=== PATIENT | female | born 1980 | race Two or more races ===

== ENCOUNTER 2017-02-04 07:54 | Emergency (ER) | payer OTHER ==
[2017-02-04 07:55] VITALS: BMI 23.1
[2017-02-04 08:11] VITALS: TEMP 98.3; O2SAT 97
[2017-02-04] MEDS ORDERED: Sodium Chloride 0.9% 1,000 ML IV STA (08:39)
--- NOTE | 2017-02-04 08:42 | ED PDOC ---
Arrival/HPI - General Chief Complaint: Headache Time Seen by Provider: 02/04/17 08:17 Historian: Patient - History of Present Illness Narrative History of Present Illness (Text): 02/04/17 08:56 A 37 year old female, whose past medical history includes chronic headaches, presents to the emergency department complaining of a headache, anxiety and left arm pain. Patient reports she has similar symptoms in the past with stress. Denies any head injury. Patient also reports shortness of breath yesterday and palpitations, but denies any other complaints at this time. Symptom Onset: Sudden Symptom Course: Unchanged Activities at Onset: Rest Context: Home Past Medical History - Provider Review Nursing Documentation Reviewed: Yes - Cardiac Hx Cardiac Disorders: No - Pulmonary Hx Respiratory Disorders: No - Neurological Hx Neurological Disorder: Yes Hx Migraine: Yes - HEENT Hx HEENT Disorder: No - Renal Hx Renal Disorder: No - Endocrine/Metabolic Hx Endocrine Disorders: No - Hematological/Oncological Hx Blood Disorders: No - Integumentary Hx Dermatological Disorder: No - Musculoskeletal/Rheumatological Hx Musculoskeletal Disorders: No - Gastrointestinal Hx Gastrointestinal Disorders: No - Genitourinary/Gynecological Hx Genitourinary Disorders: No - Psychiatric Hx Psychophysiologic Disorder: Yes Hx Anxiety: Yes Hx Depression: No Hx Emotional Abuse: No Hx Physical Abuse: No Hx Substance Use: No - Surgical History Hx Section: Yes - Suicidal Assessment Feels Threatened In Home Enviroment: No Family/Social History - Physician Review Nursing Documentation Reviewed: Yes Family/Social History: No Known Family HX Smoking Status: Never Smoked Hx Alcohol Use: No Hx Substance Use: No Hx Substance Use Treatment: No Allergies/Home Meds Allergies/Adverse Reactions: Allergies No Known Allergies Allergy (Verified 02/04/17 08:09) Home Medications: Home Meds Medication Instructions Recorded Confirmed Acetaminophen/Butalbital/Caf 1 tab PO PRN PRN 02/04/17 02/04/17 [Fioricet] Escitalopram [Lexapro] 20 mg PO DAILY 02/04/17 02/04/17 clonazePAM [Klonopin] 0.5 mg PO DAILY PRN 02/04/17 02/04/17 Review of Systems - Physician Review All systems were reviewed & negative as marked: Yes - Review of Systems Respiratory: SOB Cardiovascular: Palpitations Musculoskeletal: Other (left arm pain) Neurological: Headache Psychiatric: Anxiety Physical Exam - Physical Exam Narrative Physical Exam (Text): 02/04/17 08:54 Constitutional: No acute distress. Head: Normocephalic. Atraumatic. Eyes: PERRL. ENT: Moist mucous membranes. Neck: Supple. No midline tenderness. Cardiovascular: Regular rate. Chest: No tenderness. Respiratory: Clear to auscultation bilaterally. GI: Soft. Nontender. Nondistended. Back: No CVA tenderness. Musculoskeletal: No tenderness or swelling of extremities. Mild abrasion of left forearm, full ROM elbow, wrist, no tenderness. Skin: No rash. Neurologic: Alert, no focal deficit. Vital Signs Reviewed: Yes Vital Signs Temp Pulse Resp BP Pulse Ox 02/04/17 11:11 64 18 135/78 02/04/17 08:09 98.3 F 83 16 145/102 H 97 Temperature: Afebrile Blood Pressure: Hypertensive Pulse: Regular Respiratory Rate: Normal Appearance: Positive for: Well-Appearing, Non-Toxic, Comfortable Pain Distress: None Mental Status: Positive for: Alert and Oriented X 3 Medical Decision Making ED Course and Treatment: 02/04/17 08:42 Impression: A 37 year old female with chronic headache, anxiety and left arm pain. Plan: -- CT head -- Radiology left forearm -- Urinalysis -- IV fluids, Toradol, Tylenol -- Reassess and disposition Progress Notes: 02/04/17 09:53 CT HEAD WITHOUT CONTRAST Creator : Phillip Deal MD FINDINGS: HEMORRHAGE: No intracranial hemorrhage. BRAIN: No mass effect or edema. No atrophy or chronic microvascular ischemic changes. VENTRICLES: Unremarkable. No hydrocephalus. CALVARIUM: Unremarkable. PARANASAL SINUSES: Unremarkable as visualized. No significant inflammatory changes. MASTOID AIR CELLS: Unremarkable as visualized. No inflammatory changes. IMPRESSION: Normal CT of the Head. 02/04/17 09:57 Radiology of left forearm: No fracture or dislocation, interpreted by me. Patient in no acute distress. Symptoms consistent with panic attack, which patient states she has had in the past. - RAD Interpretation Radiology Orders: 02/04/17 08:39 HEAD W/O CONTRAST [CT] Stat FOREARM LEFT [RAD] Stat - Medication Orders Current Medication Orders: Discontinued Medications Acetaminophen (Tylenol 325mg Tab) 975 mg PO STAT STA Stop: 02/04/17 08:40 Last Admin: 02/04/17 09:17 Dose: 975 mg Sodium Chloride (Sodium Chloride 0.9%) 1,000 mls @ 999 mls/hr IV .Q1H1M STA Stop: 02/04/17 09:39 Last Admin: 02/04/17 09:18 Dose: 999 mls/hr Ketorolac Tromethamine (Toradol) 30 mg IVP STAT STA Stop: 02/04/17 08:40 Last Admin: 02/04/17 09:17 Dose: 30 mg - Scribe Statement The provider has reviewed the documentation as recorded by the Thomas Oseguera Provider Scribe Attestation: All medical record entries made by the Thomas were at my direction and personally dictated by me. I have reviewed the chart and agree that the record accurately reflects my personal performance of the history, physical exam, medical decision making, and the department course for this patient. I have also personally directed, reviewed, and agree with the discharge instructions and disposition. Disposition/Present on Arrival - Present on Arrival Any Indicators Present on Arrival: No History of DVT/PE: No History of Uncontrolled Diabetes: No Urinary Catheter: No History of Decub. Ulcer: No History Surgical Site Infection Following: None - Disposition Have Diagnosis and Disposition been Completed?: Yes Diagnosis: Panic attack Disposition: HOME/ ROUTINE Disposition Time: 09:57 Patient Plan: Discharge Condition: STABLE Discharge Instructions (ExitCare): Panic Attack (ED) Prescriptions: Ibuprofen [Motrin] 600 mg PO Q6 #25 tab Referrals: Augustus Palacios MD [Primary Care Provider] - Follow up with primary Forms: [employer] (Senegalese)
--- NOTE | 2017-02-04 09:51 | CT ---
PROCEDURE: CT HEAD WITHOUT CONTRAST. HISTORY: headache COMPARISON: None available. TECHNIQUE: Axial computed tomography images were obtained through the head/brain without intravenous contrast. Radiation dose: Total exam DLP = 689 mGy-cm. This CT exam was performed using one or more of the following dose reduction techniques: Automated exposure control, adjustment of the mA and/or kV according to patient size, and/or use of iterative reconstruction technique. FINDINGS: HEMORRHAGE: No intracranial hemorrhage. BRAIN: No mass effect or edema. No atrophy or chronic microvascular ischemic changes. VENTRICLES: Unremarkable. No hydrocephalus. CALVARIUM: Unremarkable. PARANASAL SINUSES: Unremarkable as visualized. No significant inflammatory changes. MASTOID AIR CELLS: Unremarkable as visualized. No inflammatory changes. OTHER FINDINGS: None. IMPRESSION: Normal CT of the Head.
[2017-02-04 11:15] VITALS: BP 135/78; PULSE 64; RESP 18
--- NOTE | 2017-02-04 12:33 | RAD ---
PROCEDURE: Radiographs of the Left Forearm HISTORY: arm pain COMPARISON: None available. TECHNIQUE: Frontal and lateral views obtained. FINDINGS: BONES: No fracture or destructive lesion. JOINT SPACES: Unremarkable. OTHER FINDINGS: None. IMPRESSION: No evidence of acute fracture or dislocation.
== END 2017-02-04 11:15 | disposition home or self-care (01) ==
LOC: ED 07:54
DX: F41.0 Panic disorder [episodic paroxysmal anxiety] (principal)
CPT/HCPCS: 70450; 73090; 96361; 96374; 99285; J1885; J7040

== ENCOUNTER 2017-05-27 19:31 | Emergency (ER) | payer OTHER ==
[2017-05-27 19:32] VITALS: BMI 23.1
[2017-05-27 20:45] VITALS: TEMP 98.5; O2SAT 100
--- NOTE | 2017-05-27 20:54 | ED PDOC ---
Arrival/HPI - General Chief Complaint: Psychiatric Evaluation Time Seen by Provider: 05/27/17 19:49 Historian: Patient - History of Present Illness Narrative History of Present Illness (Text): 05/27/17 20:51 Brittney Simmons is a 37 year old female, whose past medical history includes anxiety and migraines, who presents to the emergency department complaining of anxiety tonight. Patient states she has been feeling anxious after having an argument with her tonight and reports symptoms are consistent with previous episodes of anxiety. States symptoms have improved sine arriving to the ER. Patient also notes urinary frequency and requesting a urinalysis. Patient denies any suicidal ideation, homicidal ideation, fever, chills, chest pain, shortness of breath, abdominal pain, nausea, vomiting, diarrhea, hematuria , back pain, dizziness, or any other complaints. Patient regularly takes Lexapro for panic attacks. Symptom Onset: Gradual Symptom Course: Unchanged Activities at Onset: Light Context: Home Past Medical History - Provider Review Nursing Documentation Reviewed: Yes - Cardiac Hx Cardiac Disorders: No - Pulmonary Hx Respiratory Disorders: No - Neurological Hx Neurological Disorder: Yes Hx Migraine: Yes - HEENT Hx HEENT Disorder: No - Renal Hx Renal Disorder: No - Endocrine/Metabolic Hx Endocrine Disorders: No - Hematological/Oncological Hx Blood Disorders: No - Integumentary Hx Dermatological Disorder: No - Musculoskeletal/Rheumatological Hx Musculoskeletal Disorders: No - Gastrointestinal Hx Gastrointestinal Disorders: No - Genitourinary/Gynecological Hx Genitourinary Disorders: No - Psychiatric Hx Psychophysiologic Disorder: Yes Hx Anxiety: Yes Hx Depression: No Hx Emotional Abuse: No Hx Physical Abuse: No Hx Substance Use: No - Surgical History Hx Section: Yes - Suicidal Assessment Feels Threatened In Home Enviroment: No Family/Social History - Physician Review Nursing Documentation Reviewed: Yes Family/Social History: Unknown Family HX Smoking Status: Never Smoked Hx Alcohol Use: No Hx Substance Use: No Hx Substance Use Treatment: No Allergies/Home Meds Allergies/Adverse Reactions: Allergies No Known Allergies Allergy (Verified 02/04/17 08:09) Home Medications: Home Meds Medication Instructions Recorded Confirmed Escitalopram [Lexapro] 20 mg PO DAILY 02/04/17 05/27/17 Review of Systems - Physician Review All systems were reviewed & negative as marked: Yes - Review of Systems Constitutional: Normal. absent: Fevers Eyes: Normal ENT: Normal. absent: Rhinorrhea Respiratory: Normal. absent: SOB Cardiovascular: Normal. absent: Chest Pain Gastrointestinal: Normal. absent: Abdominal Pain, Diarrhea, Nausea, Vomiting Genitourinary Female: Frequency Musculoskeletal: Normal. absent: Back Pain, Neck Pain Skin: Normal. absent: Rash Neurological: Normal. absent: Headache, Dizziness Endocrine: Normal Hemo/Lymphatic: Normal Psychiatric: Anxiety Physical Exam Vital Signs Reviewed: Yes Vital Signs Temp Pulse Resp BP Pulse Ox 05/27/17 20:27 98.5 F 93 H 20 120/87 100 Temperature: Afebrile Blood Pressure: Normal Pulse: Regular Respiratory Rate: Normal Appearance: Positive for: Well-Appearing, Non-Toxic, Comfortable Pain Distress: None Mental Status: Positive for: Alert and Oriented X 3 - Systems Exam Head: Present: Atraumatic, Normocephalic Pupils: Present: PERRL Extroacular Muscles: Present: EOMI Conjunctiva: Present: Normal Mouth: Present: Moist Mucous Membranes Neck: Present: Normal Range of Motion Respiratory/Chest: Present: Clear to Auscultation, Good Air Exchange. No: Respiratory Distress, Accessory Muscle Use Cardiovascular: Present: Regular Rate and Rhythm, Normal S1, S2. No: Murmurs Abdomen: Present: Normal Bowel Sounds. No: Tenderness, Distention, Peritoneal Signs Back: Present: Normal Inspection Upper Extremity: Present: Normal Inspection. No: Cyanosis, Edema Lower Extremity: Present: Normal Inspection. No: Edema Neurological: Present: GCS=15, CN II-XII Intact, Speech Normal Skin: Present: Warm, Dry, Normal Color. No: Rashes Psychiatric: Present: Alert, Oriented x 3, Normal Insight, Normal Concentration Medical Decision Making ED Course and Treatment: 05/27/17 20:51 Impression: 37 year old female complaining of urinary frequency for past few days and anxiety tonight. Differential Diagnosis included but are not limited to: UTI vs. anxiety Plan: -- Urinalysis -- Reassess and disposition Prior Visits: Notes and results from previous visits were reviewed. On 02/04/2017, pt was seen in the emergency department for headache, anxiety, and left arm pain. Pt was d/c home. Progress Notes: 05/27/17 22:05 On reevaluation the patient feels better and is in no acute distress. I have discussed the results and plan with the patient, who expresses understanding. Patient given the opportunity to ask question, all questions were answered and there is agreement with the plan to discharge the patient home. Patient is stable for discharge. Patient was instructed to follow up with physician/clinic in 1-2 days or return if symptoms persist/worsen or new concerning symptoms arise. - Lab Interpretations Lab Results: Lab Results 05/27/17 20:55: Urine Color Yellow, Urine Appearance Clear, Urine pH 6.0, Ur Specific [place] 1.020, Urine Protein Negative, Urine Glucose (UA) Negative, Urine Ketones Negative, Urine Blood Trace-intact H, Urine Nitrate Negative, Urine Bilirubin Negative, Urine Urobilinogen 0.2, Ur Leukocyte Esterase Negative , Urine RBC 1 - 3, Urine WBC 0 - 2, Ur Epithelial Cells 1 - 3, Urine Bacteria Few, Urine HCG, Qual Negative - Medication Orders Current Medication Orders: Discontinued Medications Cephalexin Monohydrate (Keflex) 500 mg PO ONCE STA PRN Reason: Protocol Stop: 05/27/17 22:06 - Scribe Statement The provider has reviewed the documentation as recorded by the Scribmanoj Damon All medical record entries made by the Scribe were at my direction and personally dictated by me. I have reviewed the chart and agree that the record accurately reflects my personal performance of the history, physical exam, medical decision making, and the department course for this patient. I have also personally directed, reviewed, and agree with the discharge instructions and disposition. Disposition/Present on Arrival - Present on Arrival Any Indicators Present on Arrival: No History of DVT/PE: No History of Uncontrolled Diabetes: No Urinary Catheter: No History of Decub. Ulcer: No History Surgical Site Infection Following: None - Disposition Have Diagnosis and Disposition been Completed?: Yes Diagnosis: Anxiety, UTI (urinary tract infection) Disposition: HOME/ ROUTINE Disposition Time: 22:07 Patient Plan: Discharge Patient Problems: Current Active Problems Problem Status Onset Anxiety Acute UTI (urinary tract infection) Acute Condition: GOOD Discharge Instructions (ExitCare): Urinary Tract Infection in Women (ED), Anxiety (ED) Additional Instructions: Take meds as prescribed/follow up with your doctor this week Prescriptions: Acetaminophen/Butalbital/Caf [Fioricet] 1 tab PO Q6 PRN #14 tab PRN Reason: Headache Cephalexin [cephalexin] 500 mg PO BID #6 cap Referrals: Augustus Palacios MD [Primary Care Provider] - Follow up with primary Forms: [employer] (Kazakh)
[2017-05-27 21:27] LABS: URINE BILIRUBIN NEGATIVE (NEGATIVE); URINE BLOOD TRACE-INTACT (NEGATIVE); URINE GLUCOSE (UA) NEGATIVE (NEGATIVE); URINE LEUKOCYTE ESTERASE NEGATIVE Leu/uL (NEGATIVE); URINE NITRATE NEGATIVE (NEGATIVE); URINE PROTEIN NEGATIVE mg/dL (<30 mg/dL); URINE UROBILINOGEN 0.2 E.U./dL (<1 E.U./dL)
[2017-05-27 21:35] LABS: HCG,QUALITATIVE URINE NEGATIVE (NEGATIVE); URINE APPEARANCE CLEAR (CLEAR); URINE COLOR YELLOW (YELLOW)
[2017-05-27 21:50] LABS: URINE WBC 0 - 2 /hpf (0-6)
[2017-05-27 21:51] LABS: URINE BACTERIA FEW (NEG)
[2017-05-27 22:21] VITALS: BP 131/58; PULSE 80; RESP 18
== END 2017-05-27 22:44 | disposition home or self-care (01) ==
LOC: ED 19:31
DX: F41.9 Anxiety disorder, unspecified (principal); N39.0 Urinary tract infection, site not specified

== ENCOUNTER 2017-09-10 16:38 | Emergency (ER) | payer OTHER ==
[2017-09-10 16:43] VITALS: BMI 28.7
[2017-09-10 16:50] VITALS: RESP 18; TEMP 98.6; O2SAT 99
--- NOTE | 2017-09-10 18:25 | ED PDOC ---
Arrival/HPI - General Historian: Patient - History of Present Illness Time/Duration: 1 week Symptom Course: Intermittent Activities at Onset: Emotional Upset - General Chief Complaint: High Blood Pressure Time Seen by Provider: 09/10/17 16:40 - History of Present Illness Narrative History of Present Illness (Text): 09/10/17 18:17 37 yo F with history of panic disorder presents to ER with her and two kids, complaining of high blood pressure. Patient reports that on two occasions in the past week, she checked her blood pressure, once at home, and once at the pharmacy, and it was elevated to 140-170 systolic 100-105 diastolic. Patient is very tearful and anxious on exam, and reports that she has been under a lot of stress in her daily life, worse in the past two weeks. She relates the episodes of hypertension to concurrent episodes of anxiety and stress. She reports some trouble at home with her , as well as trouble with her kid's teachers. Patient reports that she is very defensive towards her kids, and that she becomes very agitated and anxious whenever anything happens that makes her concerned about them. 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 Patient is on Lexapro for her panic disorder, and was previously prescribed clonazepam by her PMD, but did not take it for fear of the side effects and addiction. Initially in the encounter, patient was complaining of a headache, but after talking to me for a few minutes, her headache has resolved. She denies any chest pain, shortness of breath, or palpitations. Patient reports that she follows up closely with Dr. Marito Gray. She now denies any suicidal ideation , homocidal ideation. Patient feels safe and unthreatened at home with her . (Jarad,Maria Antonia) Past Medical History - Provider Review Nursing Documentation Reviewed: Yes - Travel History Have you recently traveled outside [place] w/in the past 3 mons?: No - Infectious Disease Hx of Infectious Diseases: None - Tetanus Immunization Tetanus Immunization: Unknown - Cardiac Hx Cardiac Disorders: No - Pulmonary Hx Respiratory Disorders: No - Neurological Hx Neurological Disorder: Yes Hx Migraine: Yes - HEENT Hx HEENT Disorder: No - Renal Hx Renal Disorder: No - Endocrine/Metabolic Hx Endocrine Disorders: No - Hematological/Oncological Hx Blood Disorders: No - Integumentary Hx Dermatological Disorder: No - Musculoskeletal/Rheumatological Hx Musculoskeletal Disorders: No - Gastrointestinal Hx Gastrointestinal Disorders: No - Genitourinary/Gynecological Hx Genitourinary Disorders: No - Psychiatric Hx Psychophysiologic Disorder: Yes Hx Anxiety: Yes Hx Substance Use: No - Surgical History Hx Section: Yes - Suicidal Assessment Suicidal Thoughts: No Feels Threatened In Home Enviroment: No - Patient History Narrative Patient History: Panic disorder (Amine,[place]) Family/Social History - Physician Review Nursing Documentation Reviewed: Yes Family/Social History: Unknown Family HX Smoking Status: Never Smoked Hx Alcohol Use: No Hx Substance Use: No Hx Substance Use Treatment: No Allergies/Home Meds Allergies/Adverse Reactions: Allergies No Known Allergies Allergy (Verified 02/04/17 08:09) Home Medications: Home Meds Medication Instructions Recorded Confirmed Escitalopram [Lexapro] 20 mg PO DAILY 02/04/17 09/10/17 Review of Systems - Review of Systems Constitutional: Normal Eyes: Normal ENT: Normal Respiratory: Normal Cardiovascular: Normal Gastrointestinal: Normal Genitourinary Female: Normal Musculoskeletal: Normal Skin: Normal Neurological: Headache. absent: Dizziness Endocrine: Normal Hemo/Lymphatic: Normal Psychiatric: Anxiety Physical Exam Vital Signs Reviewed: Yes Temperature: Afebrile Blood Pressure: Hypertensive Pulse: Tachycardic Respiratory Rate: Normal Appearance: Positive for: Well-Appearing, Non-Toxic, Comfortable Pain Distress: None Mental Status: Positive for: Alert and Oriented X 3 - Systems Exam Head: Present: Atraumatic, Normocephalic Pupils: Present: PERRL Extroacular Muscles: Present: EOMI Conjunctiva: Present: Normal Mouth: Present: Moist Mucous Membranes Neck: Present: Normal Range of Motion Respiratory/Chest: Present: Clear to Auscultation, Good Air Exchange. No: Respiratory Distress, Accessory Muscle Use Cardiovascular: Present: Regular Rate and Rhythm, Normal S1, S2 Abdomen: Present: Normal Bowel Sounds. No: Tenderness, Distention Upper Extremity: Present: Normal Inspection. No: Cyanosis, Edema Lower Extremity: Present: Normal Inspection. No: Edema, CALF TENDERNESS Neurological: Present: GCS=15, CN II-XII Intact, Speech Normal Skin: Present: Warm, Dry, Normal Color Psychiatric: Present: Alert, Oriented x 3, Normal Insight, Normal Concentration , Anxious, Depressed Mood. No: Normal Affect, Normal Mood, Suicidal Ideation, Homicidal Ideation, Delusional, Hallucinations, Intoxicated, Lethargic - Physical Exam Narrative Physical Exam (Text): 09/10/17 18:27 Patient is intermittent tearful throughout encounter, with blunted affect, pressured speech, constantly redirects the conversation to her concerns about her kids (Maria Antonia Abraham) Vital Signs Temp Pulse Pulse Resp BP Pulse Ox 09/10/17 17:10 98 H 09/10/17 16:39 98.6 F 111 H 18 168/106 H 99 Medical Decision Making ED Course and Treatment: 09/10/17 18:35 Patient Seen With Resident: In agreement with resident note which contains more details about the patient. Patient was seen and evaluated with resident. Came up with plan and treatment together.. (Arnulfo Witt) 09/10/17 18:29 Impression: Hypertension Differential Diagnosis included but are not limited to: Primary hypertension, KAREN Plan: -- Sat with patient and had long discussion about home life, stressors, self care, and medical follow up -- Clonazepam 0.5mg PO x1 -- Recheck BP -- Reassess and disposition Prior Visits: Notes and results from previous visits were reviewed. Patient was last seen in the emergency department on 05/27/17 for anxiety and urinary symptoms. Patient was discharged from the ER to home. Progress Notes: 09/10/17 19:14 -- Patient reassess after dose of clonazepam, appears much calmer, more comfortable, less distraught; BP slightly improved -- Patient denies any chest pain, headache, shortness of breath, palpitations, leg cramps, blurry vision, diplopia, tinnitus -- Patient will be discharged to home with 5 doses of clonazepam; patient to follow up with her PMD Dr. Gray within the next week for continued monitoring of her blood pressure and anxiety. Advised patient to seek marriage counselor, as home life appears to be the source of most of her anxiety, with resultant hyperadrenergic states and hypertension. -- Patient remains hypertensive, slightly improved since presentation, but is now asymptomatic. (Maria Antonia Abraham) - Medication Orders Current Medication Orders: Discontinued Medications Clonazepam (Klonopin) 0.5 mg PO STAT STA PRN Reason: Protocol Stop: 09/10/17 17:40 Last Admin: 09/10/17 18:33 Dose: 0.5 mg Disposition/Present on Arrival - Present on Arrival Any Indicators Present on Arrival: No History of DVT/PE: No History of Uncontrolled Diabetes: No Urinary Catheter: No History of Decub. Ulcer: No History Surgical Site Infection Following: None - Disposition Have Diagnosis and Disposition been Completed?: Yes Disposition Time: 19:19 Patient Plan: Discharge - Disposition Diagnosis: Hypertension, Anxiety, Panic attack Disposition: HOME/ ROUTINE Condition: GOOD Discharge Instructions (ExitCare): High Blood Pressure (DC), Anxiety, Adult (DC ) Additional Instructions: -- Use the clonazepam 0.5mg twice daily as needed for anxiety -- Follow up with your primary care doctor within 3-5 days -- Return to the ER for any new or worsening concerns Prescriptions: Clonazepam 0.5 mg PO BID PRN #5 odt PRN Reason: Anxiety Referrals: Augustus Palacios MD [Primary Care Provider] - Follow up with primary Forms: [employer] (Citizen Of [place])
[2017-09-10 19:27] VITALS: BP 141/91; PULSE 95
== END 2017-09-10 19:28 | disposition home or self-care (01) ==
LOC: ED 16:38
DX: I10 Essential (primary) hypertension (principal); F41.0 Panic disorder [episodic paroxysmal anxiety]

== ENCOUNTER 2018-01-23 21:09 | Emergency (ER) | payer OTHER ==
[2018-01-23 21:26] VITALS: BMI 27.8
[2018-01-23 21:32] VITALS: BP 143/79; PULSE 119; RESP 18; TEMP 98.2; O2SAT 95
--- NOTE | 2018-01-23 22:00 | ED PDOC ---
Arrival/HPI - General Chief Complaint: Anxiety Time Seen by Provider: 01/23/18 21:36 - History of Present Illness Narrative History of Present Illness (Text): 01/23/18 21:54 38 year old female, whose past medical history includes chronic headaches and panic disorder, presents to the emergency department with anxiety and "high blood pressure". Patient is here with her young daughter for evaluation of a fever. Patient states she gets anxious whenever one of her children is sick. Patient informs that she is prescribed Klonopin for her anxiety, but did not take it today as she was busy dealing with her child's illness. Patient denies any fever, chills, nausea, vomiting, diarrhea, abdominal pain, chest pain, shortness of breath, back/neck pain, urinary output changes, headache, dizziness , or any other complaints. Time/Duration: Prior to Arrival Symptom Onset: Gradual Symptom Course: Unchanged Past Medical History - Provider Review Nursing Documentation Reviewed: Yes - Infectious Disease Hx of Infectious Diseases: None - Tetanus Immunization Tetanus Immunization: Unknown - Cardiac Hx Cardiac Disorders: No - Pulmonary Hx Respiratory Disorders: No - Neurological Hx Neurological Disorder: Yes Hx Migraine: Yes - HEENT Hx HEENT Disorder: No - Renal Hx Renal Disorder: No - Endocrine/Metabolic Hx Endocrine Disorders: No - Hematological/Oncological Hx Blood Disorders: No - Integumentary Hx Dermatological Disorder: No - Musculoskeletal/Rheumatological Hx Musculoskeletal Disorders: No - Gastrointestinal Hx Gastrointestinal Disorders: No - Genitourinary/Gynecological Hx Genitourinary Disorders: No - Psychiatric Hx Psychophysiologic Disorder: Yes Hx Anxiety: Yes Hx Substance Use: No - Surgical History Hx Section: Yes - Suicidal Assessment Feels Threatened In Home Enviroment: No Family/Social History - Physician Review Nursing Documentation Reviewed: Yes Family/Social History: No Known Family HX Smoking Status: Never Smoked Hx Alcohol Use: No Hx Substance Use: No Hx Substance Use Treatment: No Allergies/Home Meds Allergies/Adverse Reactions: Allergies No Known Allergies Allergy (Verified 01/23/18 21:26) Home Medications: Home Meds Medication Instructions Recorded Confirmed Escitalopram [Lexapro] 20 mg PO DAILY 02/04/17 01/23/18 Review of Systems - Review of Systems Constitutional: Normal. absent: Fevers, Night Sweats Eyes: Normal ENT: Normal Respiratory: Normal. absent: SOB Cardiovascular: Normal. absent: Chest Pain Gastrointestinal: Normal. absent: Abdominal Pain, Diarrhea, Nausea, Vomiting Genitourinary Female: Normal. absent: Urine Output Changes Musculoskeletal: Normal Skin: Normal Neurological: Normal. absent: Headache, Dizziness Endocrine: Normal Hemo/Lymphatic: Normal Psychiatric: Anxiety Physical Exam Vital Signs Reviewed: Yes Vital Signs Temp Pulse Resp BP Pulse Ox 01/23/18 22:05 98.2 F 119 H 18 143/79 95 01/23/18 21:31 98.2 F 119 H 18 143/79 95 Temperature: Afebrile Blood Pressure: Normal Pulse: Regular Respiratory Rate: Normal Appearance: Positive for: Well-Appearing, Non-Toxic, Comfortable Pain Distress: None Mental Status: Positive for: Alert and Oriented X 3 - Systems Exam Head: Present: Atraumatic, Normocephalic Pupils: Present: PERRL Extroacular Muscles: Present: EOMI Conjunctiva: Present: Normal Mouth: Present: Moist Mucous Membranes Neck: Present: Normal Range of Motion Respiratory/Chest: Present: Clear to Auscultation, Good Air Exchange. No: Respiratory Distress, Accessory Muscle Use Cardiovascular: Present: Regular Rate and Rhythm, Normal S1, S2. No: Murmurs Abdomen: No: Tenderness, Distention, Peritoneal Signs Back: Present: Normal Inspection Upper Extremity: Present: Normal Inspection. No: Cyanosis, Edema Lower Extremity: Present: Normal Inspection. No: Edema Neurological: Present: GCS=15, CN II-XII Intact, Speech Normal Skin: Present: Warm, Dry, Normal Color. No: Rashes Psychiatric: Present: Alert, Oriented x 3, Normal Insight, Normal Concentration Medical Decision Making ED Course and Treatment: 01/23/18 22:01 Impression: 38 year old female presents to the emergency department with anxiety and "high blood pressure" secondary to her child developing a fever. Plan: -- Reassess and disposition Prior Visits: Notes and results from previous visits were reviewed. Progress Notes: 01/23/18 21:31 Patient is not in distress any longer, with a blood pressure of 143/79. Patient is advised to take anxiety medication at home. - Scribe Statement The provider has reviewed the documentation as recorded by the Scribe Brenton Verduzco All medical record entries made by the Scribe were at my direction and personally dictated by me. I have reviewed the chart and agree that the record accurately reflects my personal performance of the history, physical exam, medical decision making, and the department course for this patient. I have also personally directed, reviewed, and agree with the discharge instructions and disposition. Disposition/Present on Arrival - Present on Arrival Any Indicators Present on Arrival: No History of DVT/PE: No History of Uncontrolled Diabetes: No Urinary Catheter: No History of Decub. Ulcer: No History Surgical Site Infection Following: None - Disposition Have Diagnosis and Disposition been Completed?: Yes Diagnosis: Anxiety Disposition: HOME/ ROUTINE Disposition Time: 22:05 Condition: GOOD Discharge Instructions (ExitCare): Anxiety, Adult (DC) Additional Instructions: DRE ZHOU, thank you for letting us take care of you today. Your provider was Pati De La Torre MD and you were treated for hbp. The emergency medical care you received today was directed at your acute symptoms. If you were prescribed any medication, please fill it and take as directed. It may take several days for your symptoms to resolve. Return to the Emergency Department if your symptoms worsen, do not improve, or if you have any other problems. Please contact your doctor or call one of the physicians/clinics you have been referred to that are listed on the Patient Visit Information form that is included in your discharge packet. Bring any paperwork you were given at discharge with you along with any medications you are taking to your follow up visit. Our treatment cannot replace ongoing medical care by a primary care provider outside of the emergency department. Thank you for allowing the [facility] team to be part of your care today. If you had an X-Ray or CT scan: A Radiologist will review the ED reading if any change in treatment is needed we will contact you. If you had a blood, urine, or wound culture: It will take several days for the results, if any change in treatment is needed we will contact you. If you had an STI test: It will take 48 hours for the results. Please call after 1 week if you have not heard back. Forms: [employer] ([place])
== END 2018-01-23 22:05 | disposition home or self-care (01) ==
LOC: ED 21:09
DX: F41.9 Anxiety disorder, unspecified (principal)

== ENCOUNTER 2018-10-04 00:07 | Emergency (ER) | payer OTHER ==
[2018-10-04 00:23] VITALS: BMI 24.0
[2018-10-04 00:34] VITALS: TEMP 98.4
[2018-10-04] MEDS ORDERED: Sodium Chloride 0.9% 1,000 ML IV STA (00:39)
--- NOTE | 2018-10-04 00:39 | ED PDOC ---
Arrival/HPI - General Chief Complaint: Abdominal Pain Time Seen by Provider: 10/04/18 00:22 Historian: Patient - History of Present Illness Narrative History of Present Illness (Text): 10/04/18 00:36 Brittney Simmons is a 38 year old female, whose past medical history includes anxiety, who presents to the ED complaining of high blood pressure. Patient states she took her blood pressure at home this evening, which she was noted was elevated. Patient states she has also been experiencing generalized abdominal pain, nausea, and vomiting. Patient also notes she recently fell at home and sustained bruises to her right forehead and left eye. Patient denies any fever, chills, chest pain, shortness of breath, diarrhea, urinary symptoms, back pain, neck pain, headache, dizziness, or any other complaints. Symptom Onset: Gradual Symptom Course: Unchanged Activities at Onset: Light Context: Home Past Medical History - Provider Review Nursing Documentation Reviewed: Yes - Infectious Disease Hx of Infectious Diseases: None - Tetanus Immunization Tetanus Immunization: Unknown - Reproductive Currently : No - Cardiac Hx Cardiac Disorders: No - Pulmonary Hx Respiratory Disorders: No - Neurological Hx Neurological Disorder: Yes Hx Migraine: Yes - HEENT Hx HEENT Disorder: No - Renal Hx Renal Disorder: No - Endocrine/Metabolic Hx Endocrine Disorders: No - Hematological/Oncological Hx Blood Disorders: No - Integumentary Hx Dermatological Disorder: No - Musculoskeletal/Rheumatological Hx Musculoskeletal Disorders: No - Gastrointestinal Hx Gastrointestinal Disorders: No - Genitourinary/Gynecological Hx Genitourinary Disorders: No - Psychiatric Hx Psychophysiologic Disorder: Yes Hx Anxiety: Yes Hx Substance Use: No - Surgical History Hx Section: Yes - Suicidal Assessment Feels Threatened In Home Enviroment: No Family/Social History - Physician Review Nursing Documentation Reviewed: Yes Family/Social History: Unknown Family HX Smoking Status: Never Smoked Hx Alcohol Use: No Hx Substance Use: No Hx Substance Use Treatment: No Allergies/Home Meds Allergies/Adverse Reactions: Allergies No Known Allergies Allergy (Verified 01/23/18 21:26) Home Medications: Home Meds Medication Instructions Recorded Confirmed Escitalopram [Lexapro] 20 mg PO DAILY 02/04/17 10/04/18 Review of Systems - Physician Review All systems were reviewed & negative as marked: Yes - Review of Systems Constitutional: Normal. absent: Fevers Eyes: Normal ENT: Normal Respiratory: Normal. absent: SOB, Cough Cardiovascular: Other (+high blood pressure). absent: Chest Pain Gastrointestinal: Abdominal Pain, Nausea, Vomiting Genitourinary Female: Normal. absent: Dysuria, Frequency, Hematuria, Urine Output Changes Musculoskeletal: Normal. absent: Back Pain, Neck Pain Skin: Normal. absent: Rash Neurological: Normal. absent: Headache, Dizziness Endocrine: Normal Hemo/Lymphatic: Normal Psychiatric: Normal Physical Exam Vital Signs Reviewed: Yes Vital Signs Temp Pulse Resp BP Pulse Ox 10/04/18 00:23 98.4 F 77 20 127/84 99 Temperature: Afebrile Blood Pressure: Normal Pulse: Regular Respiratory Rate: Normal Appearance: Positive for: Well-Appearing, Non-Toxic, Comfortable Pain Distress: None Mental Status: Positive for: Alert and Oriented X 3 - Systems Exam Head: Present: Atraumatic, Normocephalic, Ecchymosis (Ecchymosis over right forehead and left eye. ) Pupils: Present: PERRL Extroacular Muscles: Present: EOMI Conjunctiva: Present: Normal Mouth: Present: Moist Mucous Membranes Neck: Present: Normal Range of Motion. No: Meningeal Signs, MIDLINE TENDERNESS, Paraspinal Tenderness Respiratory/Chest: Present: Clear to Auscultation, Good Air Exchange. No: Respiratory Distress, Accessory Muscle Use Cardiovascular: Present: Regular Rate and Rhythm, Normal S1, S2. No: Murmurs Abdomen: No: Tenderness, Distention, Peritoneal Signs Back: Present: Normal Inspection. No: CVA Tenderness, Midline Tenderness, Paraspinal Tenderness Upper Extremity: Present: Normal Inspection. No: Cyanosis, Edema Lower Extremity: Present: Normal Inspection. No: Edema Neurological: Present: GCS=15, CN II-XII Intact, Speech Normal Skin: Present: Warm, Dry, Normal Color. No: Rashes Psychiatric: Present: Alert, Oriented x 3, Normal Insight, Normal Concentration Medical Decision Making ED Course and Treatment: 10/04/18 00:36 Impression: 38 year old female complaining of high blood pressure, abdominal discomfort, nausea, and vomiting. Pt also fell and sustained bruises to right forehead and left eye. Plan: -- Labs, lipase -- IV fluids -- Zofran -- Reassess and disposition Prior Visits: Notes and results from previous visits were reviewed. Progress Notes: 10/04/18 03:18 Leaving Against Medical Advice (AMA): The patient is choosing to leave against medical advice. I have personally explained to the patient that choosing to do so may result in permanent bodily harm, disability, or . I have discussed at great length that without further evaluation and monitoring there may be unforeseen circumstances and/or deterioration causing permanent bodily harm or as a result of their choice. The patient is alert, oriented, and shows the mental capacity to make clear decisions regarding the patients health care at this time. The patient continues to wish to leave against medical advice. In light of the patients decision to leave against medical advice, the patient is aware of the importance to following up as instructed. The patient has been advised that they should return to the emergency room immediately if they change their mind at any time, or if their condition begins to change or worsen in any way. - Scribe Statement The provider has reviewed the documentation as recorded by the Thomas Damon Provider Scribe Attestation: All medical record entries made by the Scribe were at my direction and personally dictated by me. I have reviewed the chart and agree that the record accurately reflects my personal performance of the history, physical exam, medical decision making, and the department course for this patient. I have also personally directed, reviewed, and agree with the discharge instructions and disposition. Disposition/Present on Arrival - Present on Arrival Any Indicators Present on Arrival: No History of DVT/PE: No History of Uncontrolled Diabetes: No Urinary Catheter: No History of Decub. Ulcer: No History Surgical Site Infection Following: None - Disposition Have Diagnosis and Disposition been Completed?: Yes Diagnosis: Abdominal pain Disposition: AGAINST MEDICAL ADVICE Disposition Time: 03:25 Condition: UNKNOWN Discharge Instructions (ExitCare): Acute Abdomen (Belly Pain), Adult (DC) Referrals: [facility] [Primary Care Provider] - Follow up with primary Forms: [employer] (Angolan)
[2018-10-04 01:11] LABS: BASO # 0.05 K/mm3 (0.0-2.0); BASO % 0.5 % (0.0-3.0); EOS # 0.3 (0.0-0.7); EOS % 3.1 % (1.5-5.0); HEMOGLOBIN 14.6 g/dL (12.0-16.0); LYMPH # 3.7 (1.2-3.4); LYMPH % 34.2 % (22.0-35.0); MEAN CELL VOLUME 85.3 fl (80.0-105.0); MEAN PLATELET VOLUME 10.2 fl (7.0-11.0); MONO # 0.4 (0.1-0.6); MONO % 3.7 % (1.0-6.0); RBC 5.04 10^6/uL (3.5-6.1); RED CELL DISTRIBUTION WIDTH 12.5 % (11.5-14.5); WHITE BLOOD COUNT 10.7 10^3/uL (4.5-11.0)
[2018-10-04 01:25] LABS: ALB/GLOB RATIO 1.2 (1.1-1.8); ALBUMIN 4.7 g/dL (3.0-4.8); ALT/SGPT 23 U/L (7-56); AST/SGOT 21 U/L (14-36); BLOOD UREA NITROGEN 10 mg/dL (7-21); CALCIUM 9.3 mg/dL (8.4-10.5); GFR NON-AFRICAN AMERICAN > 60; LIPASE 85 U/L (23-300)
[2018-10-04] MEDS ORDERED: Iohexol 350 MG/100 ML VIAL ONE (01:36)
[2018-10-04 02:14] VITALS: BP 119/79; PULSE 69; RESP 18; O2SAT 100
--- NOTE | 2018-10-04 08:32 | CT ---
Date of service: 10/04/2018 PROCEDURE: CT HEAD WITHOUT CONTRAST. HISTORY: head injury COMPARISON: None available. TECHNIQUE: Axial computed tomography images were obtained through the head/brain without intravenous contrast. Radiation dose: Total exam DLP = 851.1 mGy-cm. This CT exam was performed using one or more of the following dose reduction techniques: Automated exposure control, adjustment of the mA and/or kV according to patient size, and/or use of iterative reconstruction technique. FINDINGS: HEMORRHAGE: No intracranial hemorrhage. BRAIN: No mass effect or edema. No atrophy or chronic microvascular ischemic changes. VENTRICLES: No hydrocephalus. CALVARIUM: Unremarkable. PARANASAL SINUSES: Unremarkable as visualized. No significant inflammatory changes. MASTOID AIR CELLS: Unremarkable as visualized. No inflammatory changes. OTHER FINDINGS: None. IMPRESSION: No acute intracranial pathology identified. Preliminary impression was provided by [employer].
--- NOTE | 2018-10-04 08:52 | CT ---
Date of service: 10/04/2018 PROCEDURE: CT Abdomen and Pelvis with contrast HISTORY: abd pain COMPARISON: None available TECHNIQUE: Contrast dose: 100 mL Omnipaque 350 IV Radiation dose: Total exam DLP = 1077.4 mGy-cm. This CT exam was performed using one or more of the following dose reduction techniques: Automated exposure control, adjustment of the mA and/or kV according to patient size, and/or use of iterative reconstruction technique. FINDINGS: Examination limited by patient motion. LOWER THORAX: No visible consolidation, pleural effusion, or pneumothorax. LIVER: Hepatomegaly. GALLBLADDER AND BILE DUCTS: Cholelithiasis. Gallbladder distension. PANCREAS: Unremarkable. SPLEEN: Unremarkable. ADRENALS: Unremarkable. KIDNEYS AND URETERS: The kidneys enhance symmetrically. No hydronephrosis or obstructing calculus identified. VASCULATURE: No aortic aneurysm. No atherosclerotic calcification or mural plaque present. BOWEL: Stomach is nondistended. Lack of oral contrast limits evaluation for bowel pathology. Bowel loops appear within normal limits of caliber without evidence of obstruction. Diverticulosis without CT evidence of acute diverticulitis. Colonic wall thickening particularly the transverse colon may be seen in the setting of colitis. APPENDIX: The visualized portions of the presumed appendix appears within normal limits of caliber. No secondary signs of acute appendicitis. PERITONEUM: No significant free fluid. No definite free air. LYMPH NODES: No bulky adenopathy identified. BLADDER: Under distended urinary bladder appears otherwise grossly unremarkable. REPRODUCTIVE: The uterus is present. 2.7 cm right adnexal cyst, presumably ovarian. Extensive prominent pelvic vasculature may be seen in setting of pelvic congestion syndrome. BONES: No acute osseous abnormality is detected. OTHER FINDINGS: None. IMPRESSION: Hepatomegaly. Cholelithiasis. Gallbladder distension. Right upper quadrant ultrasound may be considered for further evaluation if indicated. Colonic wall thickening particularly the transverse colon may be seen in the setting of colitis. Diverticulosis without CT evidence of acute diverticulitis. 2.7 cm right adnexal cyst, presumably ovarian. Extensive prominent pelvic vasculature may be seen in setting of pelvic congestion syndrome. Additional incidental findings as above. Preliminary impression was provided by [employer]. Study marked for PA review.
== END 2018-10-04 03:24 | disposition left against medical advice (07) ==
LOC: ED 00:07
DX: R10.9 Unspecified abdominal pain (principal); F41.9 Anxiety disorder, unspecified
CPT/HCPCS: 70450; 74177; 80053; 81025; 83690; 83735; 85025; 96374; 96376; 99285; J2405; J7030; Q9967